=== PATIENT | female | born 1955 | race Caucasian/White ===

== ENCOUNTER 2024-11-29 11:28 | Outpatient (OUT) | payer MEDICARE, SELFPAY ==
--- OUTSIDE RECORDS SUMMARY | 2024-11-29 11:39 | XMS_ITS | Encounter Summary ---
Author Organization [facility] Address [address] [facility] [address] Care Team Providers Care Flat Sorter Processor Name Role Phone Unallocated, Noms Provider Primary Care Rosy cassi Encounter Details Date Type Department Care Team (Late Contact Info) Description 09/11/[address] [facility] [address] [facility] [address] [place] [address] Abdelrahman Antonio, DO [address] [facility] [address] [place] [address] Social History Tobacco Use Types Packs/Day Years Used Date Smoking Tobacco: Every Day Cigarettes 0.5 50 Smokeless Tobacco: Never Alcohol Use Standard Drinks/Week Comments Yes 0 (1 standard drink = 0.6 oz pur e alcohol) AUDIT-C Answer Date Recorded Q1: How often do you have a drink containing alcohol? 4 or more times a week 04/28/2023 Q2: How many drinks containi ng alcohol do you have on a typical day when you are drinking? 1 or 2 Q3: How often do you have si x or more drinks on one occasion? Weekly 04/28/2023 Comments No Sex and Gender Information Value Date Recorded Sex Assigned at Not on file Legal Sex Female 7:21 PM EDT Gender Identity Not on file Sexual Orientation Not on file documented as of this encounter Plan of Treatment Upcoming Encounters Date Type Department Care Team (Late Contact Info) Description 05/18/2025 8:30 AM EST Office Visit [facility] [address] [facility] [address] [place] [address] Doroteo Graham MD [address] [place] [address] documented as of this encounter Procedures Procedure Name Priority Date/Time Associated Diagnosis Comments COLONOSCOPY Routine 09/11/2023 2:23 PM EDT documented in this encounter Results * Colonoscopy (09/11/2023 2:23 PM EDT) Anatomical Region Laterality Modality Endoscopy Abdelrahman Antonio DO ENDOSCOPY PROCEDURE ORDER MCKAYLA Final Result documented in this encounter Visit Diagnoses Not on filedocumented in this encounter Care Teams Flat Sorter Processor Relationship Specialty Start Date End Date Unallocated, Noms Provider, [address] [place] [address] PCP - General 04/28/23 documented as of this encounter
--- OUTSIDE RECORDS SUMMARY | 2024-11-29 11:39 | XMS_ITS | Clinical Summary ---
Author Organization [facility] tem Address [id number] [address] [place] [address] Care Team Providers Care Top Waddy Name Role Phone No Pcp, No Pcp Primary Care Provider Unavailabl e Family History Medical History Relation Name Comments Breast cancer Neg Hx Social History Tobacco Use Types Packs/Day Years Used Date Smoking Tobacco: Never Assessed Childcare Answer Date Recorded Childcare Unknown 11/11/2018 Employment Answer Date Recorded Employment Unknown 11/11/2018 Purpose - Life Answer Date Recorded Purpose and direction in life Unknown Comments No Sex and Gender Information Value Date Recorded Sex Assigned at Not on file Legal Sex Female 11:31 AM EDT Gender Identity Not on file Sexual Orientation Not on file Last Filed Vital Signs Vital Sign Reading Time Taken Comments Blood Pressure - - Pulse - - Temperature - - Respiratory Rate - - Oxygen Saturation - - Inhaled Oxygen Concentration - - Weight 62.1 kg (137 lb) 06/28/2022 8:14 AM EST Height 160 cm (5' 3 ) 06/28/2022 8:14 AM EST Body Mass Index 24.27 06/28/2022 8:14 AM EST Plan of Treatment Health Maintenance Due Date Last Done Comments Depression Screening 1967 Tobacco Screening 1967 DTaP,Tdap and Td Vaccines (1 - Tdap) 1976 Zoster (Shingles) Vaccine (1 of 2) 11/30/2007 Fall Risk Screening 2022 Adult BMI Screening 06/28/2023 06/28/2022 COVID-19 Vaccine (2023-2 5 season) 2024 02/22/2022, 10/25/2021, 04/25/2021, Additional history exists Influenza Vaccine 01/31/2025 Medical Devices Not on file Insurance [employer] Care Teams Top Waddy Relationship Specialty Start Date End Date No Pcp, [place] [id number] PCP - General Family Medicine 04/19/17
--- NOTE | 2024-11-29 11:41 | XR_ITS ---
The [address] [address] Patient Name: KATHERINE BLOOM MRN: [id number] date: 1955 Sex: F Assigned Patient Location: [facility] Current Patient Location: [facility] Accession/Order Number: [id number] Exam Date: 11/29/2024 11:59 Report Date: 11/29/2024 12:01 At the request of: SANG PINTO NP Procedure: XR ankle RT min 3V RIGHT ANKLE - 3 views CLINICAL DATA: Intermittent right ankle pain for the past 2 weeks. No injury. COMPARISON: None AP, lateral and oblique views were obtained. There is no evidence of fracture or dislocation. The talar dome is intact. Calcaneal spurs are seen. There are no significant soft tissue abnormalities. XR/XR ankle RT min 3V IMPRESSION: CALCANEAL SPURS. NO ACUTE BONY FINDINGS. Impression dictated by: Katherine Asher M.D. 11/29/2024 12:01 PM Dictation Location: [place] [address] Electronically authenticated by: [id number] Y Date: 11/29/2024 12:01
== END 2024-11-29 11:29 | disposition home or self-care (01) ==
LOC: RAD 11:37
PROVIDERS: Visit Provider Nurse Practitioner Family
DX: M25.571 Pain in right ankle and joints of right foot (principal); M77.31 Calcaneal spur, right foot
CPT/HCPCS: 73610